=== PATIENT | female | born 1985 | race Caucasian/White ===

== ENCOUNTER → 2020-04-06 16:09 | Outpatient (BNVA) | payer BC, SELFPAY | PROVIDERS: Visit Provider Counselor Professional | DX: F33.1 Major depressive disorder, recurrent, moderate (principal); Z63.5 Disruption of family by separation and divorce | CPT/HCPCS: 90791 ==

== ENCOUNTER → 2020-04-20 16:07 | Outpatient (BNVA) | payer BC, SELFPAY | PROVIDERS: Visit Provider Counselor Professional | DX: F33.1 Major depressive disorder, recurrent, moderate (principal); Z63.5 Disruption of family by separation and divorce | CPT/HCPCS: 90832 ==

== ENCOUNTER → 2020-05-06 16:04 | Outpatient (BNVA) | payer BC, SELFPAY | PROVIDERS: Visit Provider Counselor Professional | DX: F33.1 Major depressive disorder, recurrent, moderate (principal); Z63.5 Disruption of family by separation and divorce | CPT/HCPCS: 90832 ==